=== PATIENT | male | born 1975 | race Caucasian/White ===

== ENCOUNTER 2020-09-08 23:02 | Emergency (ER) | payer MEDICAID ==
[~2020-09-08] VITALS: Ht 172.7 cm; Wt 62.1 kg
[2020-09-08 23:02] VITALS: BP_SYST 116
[2020-09-08] MEDS ORDERED: ACET325T PO (23:25)
[2020-09-08] MEDS ORDERED: ALPR0.25 PO (23:26)
[2020-09-08] MEDS ORDERED: BISA10SU61 RC (23:27)
[2020-09-08] MEDS ORDERED: CIPR-211 PO (23:28)
[2020-09-08] MEDS ORDERED: DOCU-144 PO (23:29)
[2020-09-08] MEDS ORDERED: DULO30CA52 PO (23:30)
[2020-09-08] MEDS ORDERED: MORPHINE 2 MG/ML INJ. SYRINGE IVP ONE (23:30)
[2020-09-08] MEDS ORDERED: MOM PO (23:31)
[2020-09-08] MEDS ORDERED: MORP15TA PO (23:32)
[2020-09-08] MEDS ORDERED: ANT30 PO (23:34)
[2020-09-08] MEDS ORDERED: NAPR-1172 PO (23:34)
[2020-09-08] MEDS ORDERED: HYDR-4274 PO (23:35)
[2020-09-08] MEDS ORDERED: HYDR-4272 PO (23:36)
[2020-09-08] MEDS ORDERED: SENN8.6T19 PO (23:37)
[2020-09-08] MEDS ORDERED: TRAZ-250 PO ×2 (23:38→23:39)
[2020-09-08] MEDS ORDERED: ASCO500T20 PO (23:40)
[2020-09-08] MEDS ORDERED: DICL100G19 TP (23:42)
--- NOTE | 2020-09-08 23:44 | NUR ---
Medication reconciliation completed with information provided by [facility]. Any prior medication reconciliation on file was reviewed and corrected.
[2020-09-09] MEDS ORDERED: MORPHINE 4 MG/ML INJ. SYRINGE IM ONE (00:15)
[2020-09-09 00:16] LABS: BASOPHILS % (AUTO) 0.3 % (0.0-2.0); EOSINOPHILS # (AUTO) 0.4 K/uL (0.0-0.4); EOSINOPHILS % (AUTO) 6.6 % (0.0-4.0); HEMATOCRIT 47.6 % (36-54); HEMOGLOBIN 15.6 g/dL (14.0-18.0); LYMPHOCYTES # (AUTO) 1.1 K/uL (1.0-5.5); LYMPHOCYTES % (AUTO) 17.4 % (20.5-51.5); MEAN CORPUSCULAR HEMOGLOBIN 30 pg (27-31); MEAN CORPUSCULAR HGB CONC 33 % (32-36); MEAN CORPUSCULAR VOLUME 91 fL (79.0-98.0); MONOCYTES # (AUTO) 0.7 K/uL (0.0-1.0); MONOCYTES % (AUTO) 10.3 % (1.7-9.3); NEUTROPHILS # (AUTO) 4.3 K/uL (1.8-7.7); NEUTROPHILS % (AUTO) 65.4 % (40.0-70.0); PLATELET COUNT (AUTO) 263 K/uL (130-430); RED BLOOD CELL COUNT(AUTO) 5.24 MIL/uL (4.2-6.2); RED CELL DISTRIBUTION WIDTH 14.9 % (9.0-15.0); WHITE BLOOD COUNT (AUTO) 6.6 K/uL (4.8-10.8)
[2020-09-09 00:24] LABS: CALCIUM 9.2 mg/dL (8.4-11.0); CREATININE 0.68 mg/dL (0.55-1.30); POTASSIUM 4.6 mmol/L (3.5-5.1)
[2020-09-09 00:30] LABS: ALBUMIN 3.6 g/dL (3.4-4.8); BILIRUBIN,DIRECT 0.1 mg/dL (0.0-0.3); TOTAL BILIRUBIN 0.3 mg/dL (0.0-1.0)
[2020-09-09 00:51] LABS: PROTHROMBIN TIME 9.9 SECS (9.5-12.5)
--- NOTE | 2020-09-09 01:30 | NUR ---
# 20 gauge angiocath placed to . Use of asceptic technique. Opsite placed over site. Blood return noted. Blood for lab drawn from site. Flushed with 10 cc of normal saline. No evidence of infiltration noted. Patient tolerated well.
--- NOTE | 2020-09-09 01:30 | NUR ---
Patient to ER bed to gown for evaluation. Side rails up.
--- NOTE | 2020-09-09 01:45 | NUR ---
KAMALA Rapp at bedside examining patient.
[2020-09-09 02:12] LABS: BILIRUBIN,URINE NEGATIVE (NEGATIVE); BLOOD, URINE 1+ (NEGATIVE); CLARITY/URINE CLOUDY (CLEAR); COLOR,URINE YELLOW (YELLOW); GLUCOSE,URINE NEGATIVE (NEGATIVE); KETONES,URINE NEGATIVE (NEGATIVE); LEUKOCYTE ESTERASE ,URINE 3+ (NEGATIVE); NITRITE, URINE NEGATIVE (NEGATIVE); PROTEIN URINE NEGATIVE (NEGATIVE); UROBILINOGEN,URINE 0.2 (0.2-1.0)
[2020-09-09 02:17] LABS: BACTERIA,URINE MANY /HPF (None Seen); RBC,URINE >100 /HPF (0-3); WBC,URINE >100 /HPF (0-3)
--- NOTE | 2020-09-09 02:22 | NUR ---
Patient currently in CT.
--- NOTE | 2020-09-09 02:44 | NUR ---
Patient returned from CT in stable condition.
--- NOTE | 2020-09-09 02:52 | NUR ---
Patient resting quietly. No acute distress noted. Vital signs within normal range.
[2020-09-09] MEDS ORDERED: AZITHROMYCIN 500 MG/VIAL (ZITHROMAX) IV ONE (03:41)
[2020-09-09] MEDS ORDERED: MORPHINE 4 MG/ML INJ. SYRINGE ONE (03:42)
[2020-09-09] MEDS ORDERED: cefTRIAXone 1 GM IVPB PREMIX 50 ML IV ONE (03:45)
[2020-09-09] MEDS ORDERED: MORPHINE 4 MG/ML INJ. SYRINGE IVP ONE (03:45)
[2020-09-09] MEDS ORDERED: AZITHROMYCIN 500 MG in NS 250 ML IV ONE (03:45)
--- NOTE | 2020-09-09 03:58 | NUR ---
patient medicated as ordered, will observe for any adverse reaction. iv site patent and intact bed to low position sr up. continue to monitor.
--- NOTE | 2020-09-09 04:51 | NUR ---
Contacted [facility] "[place]" who was given report regarding patient. [facility] contacted [id number].
[2020-09-09 07:21] VITALS: BP_SYST 96
--- NOTE | 2020-09-09 07:23 | NUR ---
Report given to lead emt for [facility].
== END 2020-09-09 07:23 | disposition home or self-care (01) ==
LOC: SED 23:02
DX: K59.00 Constipation, unspecified (principal); J18.9 Pneumonia, unspecified organism; N39.0 Urinary tract infection, site not specified; Z79.899 Other long term (current) drug therapy
CPT/HCPCS: 36415; 74177; 76376; 80048; 80076; 81000; 83605; 83690; 85025; 85610; 87086; 96365; 96367; 96372; 96375; 99285; J0456; J0696; J2270; Q9967; 93005